=== PATIENT | female | born 1995 | race Caucasian/White ===

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

== ENCOUNTER 2020-08-13 09:04 | Emergency (ER) | payer OTHER ==
[~2020-08-13 09:04] MED LIST: LODINE CAP 300300 MG PO; NORCO 5-325 TA1 EACH PO; ZOFRAN ODT 4 MG4 MG PO
[2020-08-13 10:55] LABS: HEMOGLOBIN 12.2 gm/dl (12.3-15.3); RED BLOOD COUNT 4.27 M/UL (4.00-5.10); WHITE BLOOD COUNT 9.7 K/UL (4.5-11.0)
[2020-08-13 11:10] LABS: BUN/CREATININE RATIO 12 (0-10)
[2020-08-13] MEDS ORDERED: MACROBID 100 M100 MG PO (11:38)
== END 2020-08-13 12:23 | disposition home or self-care (01) ==
LOC: ER1 09:04
PROVIDERS: Physician Assistant
DX: O23.43 Unspecified infection of urinary tract in pregnancy, third trimester (principal); O99.891 Other specified diseases and conditions complicating pregnancy; R19.7 Diarrhea, unspecified; R20.2 Paresthesia of skin; V47.9XXA Unspecified car occupant injured in collision with fixed or stationary object in traffic accident, initial encounter; Y92.410 Unspecified street and highway as the place of occurrence of the external cause; Z3A.33 33 weeks gestation of pregnancy; Z20.828 Contact with and (suspected) exposure to other viral communicable diseases
CPT/HCPCS: 76815; 80053; 81001; 85025; 99284; J7030; U0003

== ENCOUNTER 2020-09-19 16:32 | Inpatient (IN) | payer OTHER ==
[~2020-09-19] VITALS: Ht 157.5 cm; Wt 93.9 kg
[~2020-09-19 16:32] MED LIST changes: +MACROBID 100 M100 MG PO
[2020-09-19 17:17] LABS: HEMOGLOBIN 11.6 gm/dl (12.3-15.3); RED BLOOD COUNT 4.11 M/UL (4.00-5.10); WHITE BLOOD COUNT 9.7 K/UL (4.5-11.0)
[2020-09-19] MEDS ORDERED: PRENATAL TABLE1 EAC1 PO (17:39)
[2020-09-20] MEDS ORDERED: INTEGRA F CAPS1 EACH PO (15:12)
[2020-09-20] MEDS ORDERED: IBUPROFEN800 MG PO (15:12)
[2020-09-20] MEDS ORDERED: COLACE 100MG C100 MG PO (15:12)
[2020-09-21 06:37] LABS: HEMOGLOBIN 11.6 gm/dl (12.3-15.3)
== END 2020-09-22 15:46 | disposition home or self-care (01) | DRG 807 ==
LOC: GENOP 16:32 → OB 16:59
PROVIDERS: Obstetrics & Gynecology; ADMIT Obstetrics & Gynecology
PROC: 10E0XZZ Delivery of Products of Conception, External Approach (ICD-10-PCS; principal; 2020-09-20)
PROC: 10907ZC Drainage of Amniotic Fluid, Therapeutic from Products of Conception, Via Natural or Artificial Opening (ICD-10-PCS; 2020-09-20)
PROC: 3E033VJ Introduction of Other Hormone into Peripheral Vein, Percutaneous Approach (ICD-10-PCS; 2020-09-20)
PROC: 3E0234Z Introduction of Serum, Toxoid and Vaccine into Muscle, Percutaneous Approach (ICD-10-PCS; 2020-09-20)
PROC: 3E0234Z Introduction of Serum, Toxoid and Vaccine into Muscle, Percutaneous Approach (ICD-10-PCS; 2020-09-22)
DX: O98.82 Other maternal infectious and parasitic diseases complicating childbirth (principal); Z37.0 Single live birth; Z3A.38 38 weeks gestation of pregnancy; Z23 Encounter for immunization
CPT/HCPCS: 36415; 51702; 81001; 85014; 85018; 85025; 90471; 90707; 90715; J0696; J2590; J7040; J7120